=== PATIENT | female | born 1985 | race Hispanic/Latino ===

== ENCOUNTER 2018-06-24 09:41 | Outpatient (CLI) | payer MEDICAID ==
--- NOTE | 2018-06-24 13:40 | ULT ---
OBSTETRIC SONOGRAM: History: evaluation. 2nd trimester gestation. FINDINGS: Multiple transabdominal sonographic views of the gravid uterus show a single uterine gestation in rehana ech presentation. Grade 0 placenta is posterior. Amniotic fluid is within normal limits. No gross int racranial abnormalities are apparent. Four chamber heart shows motion at 143 beats/minute. Three vess el cord shows a normal insertion. Amniotic fluid is unremarkable. spine and kidneys are intact as visualized. Measurements are as follows: BPD 18 weeks 6 days HC 19 weeks 2 days AC 19 weeks 5 days FL 18 weeks 4 days Estimated date of delivery based on today's sonogram is 11-17-18. [place] percentile: 5%. IMPRESSION: Single viable intrauterine gestation with estimated gestational age based on today's sonogram of 19 w eeks 1 day, approximately 8 days smaller than the previously stated date, at last menstrual period. POS: [facility]
== END 2018-06-24 09:42 | disposition home or self-care (01) ==
LOC: BICULT 09:41
PROVIDERS: ATTEND Family Medicine
DX: O09.522 Supervision of elderly multigravida, second trimester (principal); Z3A.19 19 weeks gestation of pregnancy
CPT/HCPCS: 76805

== ENCOUNTER 2018-10-29 08:08 | Day surgery (SDC) | payer MEDICAID, OTHER ==
[2018-10-29 08:41] VITALS: BMI 43.2
[2018-10-29 08:46] VITALS: BP 118/71; TEMP 98
--- NOTE | 2018-10-29 09:16 | PDOC.LDHP ---
Labor and Delivery H&P Chief complaint: decreased movement HPI: Patient of Dr Jones Time: 909 Location: L&D [facility] HPI: 32 yo at 38 weeks 3 days here for decreased FM since 399. No VB, no LOF, no trauma, no CTX. No other issues. HX x2...here for check. Review of Systems: complete ROS completed and as per HPI Current gestational age (weeks): 38 (3) Dating criteria: last menstrual period Grav: 3 Para: 2 Current complications: none Abnormal US findings: No Current medications: pre-donna vitamins Previous surgical history: other (widom teeth) Allergies/Adverse Reactions: Allergies Allergy/AdvReac Type Severity Reaction Status Date / Time No Known Drug Allergies Allergy Verified 05/25/13 16:17 Social history: none - Physical Exam Vital signs reviewed and normal: yes (118/71...pulse was initially 80, then 105 after RN interview (following); afebrile) General: NAD Heart: RRR Lungs: CTAB Abdomen: gravid Extremeties: no edema FHT: category 1, variability present [place] contractions every: none - Assessment Decreased FM at early term..., strip Reactive (accels and mod variability, no decels) - Plan Plan: observation in L&D (Follow vitals, no evidence PTL, reassurrance given)
== END 2018-10-29 09:39 | disposition home health service (06) ==
LOC: L&D/OP 08:08
PROVIDERS: ATTEND Family Medicine
DX: O36.8130 Decreased fetal movements, third trimester, not applicable or unspecified (principal); Z3A.38 38 weeks gestation of pregnancy
CPT/HCPCS: 59025; 99282

== ENCOUNTER 2018-11-03 22:59 | Inpatient (IN) | payer MEDICAID, SELFPAY ==
[2018-11-03] MEDS ORDERED: Methylergonovine 0.2 MG/ML VIAL IM PRN (23:08)
[2018-11-03] MEDS ORDERED: Lidocaine 1% (PF) 30 ML VIAL SC PRN (23:08)
[2018-11-03] MEDS ORDERED: Diphenoxylate HCl/Atropine Tablet PO PRN (23:08)
[2018-11-03] MEDS ORDERED: Butorphanol Tartrate 1 MG/ML VIAL SLOW IVP PRN (23:08)
[2018-11-03] MEDS ORDERED: HYDROcodone/Acetaminophen 5/325 mg Tablet PO PRN (23:08)
[2018-11-03] MEDS ORDERED: Ibuprofen 800 MG TAB PO PRN (23:08)
[2018-11-03] MEDS ORDERED: Misoprostol 200 MCG TAB PR PRN (23:08)
[2018-11-03] MEDS ORDERED: Carboprost 250 MCG/ML AMP IM PRN (23:08)
[2018-11-03] MEDS ORDERED: Ondansetron PF 4 MG/2 ML Vial IVP PRN (23:08)
[2018-11-03] MEDS ORDERED: NS / Oxytocin 40 units/1000ml 1,000 ML IV PRN (23:08)
[2018-11-03] MEDS ORDERED: NS w/ Oxytocin 10 units 500 ML IV SCH ×2 (23:30)
[2018-11-03 23:36] LABS: Hemoglobin 12.7 g/dL (12.0-16.0); Mean Corpuscular HGB CONC 33.5 g/dL (32.0-36.0); Mean Corpuscular Hemoglobin 29.7 pg (27.0-31.0); Mean Corpuscular Volume 88.6 fL (78.0-98.0); Mean Platelet Volume 9.7 fL (7.4-10.4); Platelet Count 213 thou/uL (130-400); RBC Distribution Width 12.5 % (11.5-14.5); Red Blood Cell (RBC) Count 4.28 mill/uL (4.20-5.40); White Blood Cell (WBC) Count 11.9 thou/uL (4.8-10.8)
[2018-11-03] MEDS: Lactated Ringer's 1,000 ML IV SCH (23:59)
[2018-11-04] MEDS: Misoprostol 100 MCG TAB PO SCH ×3 (00:06→22:09)
[2018-11-04 00:13] LABS: Syphilis Antibody Nonreactive (Nonreactive); Syphilis Antibody Index 0.04 S/CO (<1.00 Non-Reactive)
[2018-11-04 00:48] VITALS: BMI 41.5
[2018-11-04 01:04] LABS: Hep B Surf Ag Non-Reactive S/CO (NonReactive)
[2018-11-04] MEDS: Lactated Ringer's 1,000 ML IV SCH (07:54)
[2018-11-04] MEDS ORDERED: Preparation H Ointment 28 GM TUBE PR PRN (17:03)
[2018-11-04] MEDS ORDERED: NS / Oxytocin 40 units/1000ml 1,000 ML IV SCH (17:03)
[2018-11-04] MEDS ORDERED: Milk Of Magnesia 30 ML UDCUP PO PRN (17:03)
[2018-11-04] MEDS ORDERED: HYDROcodone/Acetaminophen 5/325 mg Tablet PO PRN ×2 (17:03)
[2018-11-04] MEDS ORDERED: Lanolin Ointment 7 GM TUBE TOP PRN (17:03)
[2018-11-04] MEDS ORDERED: Bisacodyl 10 MG SUPP PR PRN (17:03)
[2018-11-04] MEDS ORDERED: Ondansetron PF 4 MG/2 ML Vial IVP PRN (17:03)
[2018-11-04] MEDS ORDERED: Adacel (T-DAP) 0.5 ML SYRINGE IM ONE (17:03)
[2018-11-04] MEDS: Ibuprofen 800 MG TAB PO SCH (22:14)
[2018-11-04] MEDS: Docusate Calcium (SURFAK) 240 MG CAP PO SCH (22:14)
[2018-11-04] MEDS: Ferrous Sulfate 325 MG TAB PO SCH (22:21)
[2018-11-05] MEDS: Lactated Ringer's 1,000 ML IV SCH (02:06)
[2018-11-05] MEDS: Ibuprofen 800 MG TAB PO SCH ×2 (05:55→13:48)
[2018-11-05 06:23] LABS: Hemoglobin 12.1 g/dL (12.0-16.0); Mean Corpuscular HGB CONC 33.4 g/dL (32.0-36.0); Mean Corpuscular Hemoglobin 30.3 pg (27.0-31.0); Mean Corpuscular Volume 90.6 fL (78.0-98.0); Mean Platelet Volume 9.3 fL (7.4-10.4); Platelet Count 182 thou/uL (130-400); RBC Distribution Width 12.5 % (11.5-14.5); Red Blood Cell (RBC) Count 3.99 mill/uL (4.20-5.40); White Blood Cell (WBC) Count 12.4 thou/uL (4.8-10.8)
[2018-11-05] MEDS ORDERED: Prenatal Vitamin 1 TAB PO SCH (09:00)
[2018-11-05] MEDS: Docusate Calcium (SURFAK) 240 MG CAP PO SCH (09:18)
[2018-11-05] MEDS: Ferrous Sulfate 325 MG TAB PO SCH ×2 (09:19→14:27)
[2018-11-05 12:12] VITALS: BP 129/68; TEMP 98.2
== END 2018-11-05 18:15 | disposition home or self-care (01) | DRG 807 ==
LOC: L&D 22:59 → 3SW 11-04 22:12
PROVIDERS: ADMIT Family Medicine; ATTEND Family Medicine
PROC: 10E0XZZ Delivery of Products of Conception, External Approach (ICD-10-PCS; principal; 2018-11-04)
PROC: 10907ZC Drainage of Amniotic Fluid, Therapeutic from Products of Conception, Via Natural or Artificial Opening (ICD-10-PCS; 2018-11-04)
PROC: 3E033VJ Introduction of Other Hormone into Peripheral Vein, Percutaneous Approach (ICD-10-PCS; 2018-11-04)
PROC: 3E0P7VZ Introduction of Hormone into Female Reproductive, Via Natural or Artificial Opening (ICD-10-PCS; 2018-11-04)
PROC: 0HQ9XZZ Repair Perineum Skin, External Approach (ICD-10-PCS; 2018-11-04)
DX: O99.214 Obesity complicating childbirth (principal); Z37.0 Single live birth; E66.9 Obesity, unspecified; O70.0 First degree perineal laceration during delivery; O69.81X0 Labor and delivery complicated by cord around neck, without compression, not applicable or unspecified; Z3A.39 39 weeks gestation of pregnancy
CPT/HCPCS: 36415; 85027; 86780; 86850; 86900; 86901; 87340; 90715; J0595; J2001

== ENCOUNTER 2022-04-21 12:36 | Emergency (ER) | payer MEDICAID, SELFPAY ==
[~2022-04-21 12:36] MED LIST: Iopamidol-370 76% 500 ML 1 ML ONE
[2022-04-21 13:04] LABS: BHCG - Serum Negative (NEGATIVE); Pregs Control Background? CLEAR/WHITE (CLR/WHITE); Pregs Control Bar Appear? YES (CONTROL BAR)
[2022-04-21 13:14] LABS: #Eosinphils 0.2 thou/uL (0.0-0.7); #Lymphocytes 2.8 thou/uL (1.20-3.40); #Monocytes 0.8 thou/uL (0.11-0.59); #Neutrophils 13.8 thou/uL (1.40-6.50); %Basophils 0.2 % (0.0-1.0); %Lymphocytes 15.9 % (21.0-51.0); %Monocytes 4.6 % (0.0-10.0); %Neutrophils 78.3 % (42.0-75.0); Hemoglobin 12.9 g/dL (12.0-16.0); Mean Corpuscular HGB CONC 32.3 g/dL (32.0-36.0); Mean Corpuscular Hemoglobin 26.7 pg (27.0-31.0); Mean Corpuscular Volume 82.8 fL (78.0-98.0); Mean Platelet Volume 8.5 fL (7.4-10.4); Platelet Count 316 thou/uL (130-400); RBC Distribution Width 13.5 % (11.5-14.5); Red Blood Cell (RBC) Count 4.84 mill/uL (4.20-5.40); White Blood Cell (WBC) Count 17.6 thou/uL (4.8-10.8)
[2022-04-21 13:20] LABS: ALT (SGPT) 26 U/L (8-55); AST (SGOT) 35 U/L (5-34); Albumin 4.1 g/dL (3.5-5.0); Alkaline Phosphatase 115 U/L (40-110); Anion Gap 15 mmol/L (10-20); BUN (Urea Nitrogen) 13 mg/dL (7.0-18.7); Bilirubin, Total 0.3 mg/dL (0.2-1.2); Calc. Creatinine Clearance 0 mL/min (70-130); Calcium 9.1 mg/dL (7.8-10.44); Carbon Dioxide 24 mmol/L (22-29); Chloride 102 mmol/L (98-107); Estimated GFR 100; Globulin 3.8 g/dL (2.4-3.5); Glucose 125 mg/dL (70-105); Lipase 18 U/L (8-78); Protein, Total 7.9 g/dL (6.0-8.3); Sodium 137 mmol/L (136-145)
[2022-04-21] MEDS ORDERED: Ondansetron ODT 8 MG TAB ONE (15:08)
[2022-04-21] MEDS ORDERED: Ketorolac Tromethamine 30 MG/ML VIAL ONE (15:08)
[2022-04-21 16:30] LABS: Bacteria/HPF None Seen HPF (None Seen); Bilirubin Negative (Negative); Blood, Urine 3+ (Negative); Clarity Turbid (Clear); Glucose, Urine (Dipstick) Normal (Negative); Ketone, Urine 60 mg/dL (Negative); Leukocyte 75 Leu/uL (Negative); Nitrite Negative (Negative); Protein, Urine (Dipstick) 30 mg/dL (Neg-Trace); RBC/HPF Greater than 50 HPF (0-3); Specific Gravity, Urine 1.024 (1.002-1.036); Urobilinogen Normal mg/dL (Less than 2); pH, Urine 6.5 (5.0-9.0)
[2022-04-21] MEDS ORDERED: Morphine 4 MG/ML VIAL ONE (17:39)
== END 2022-04-21 16:45 | disposition home or self-care (01) ==
LOC: ERS 12:36
DX: N13.2 Hydronephrosis with renal and ureteral calculous obstruction (principal)
CPT/HCPCS: 36415; 74177; 80053; 81003; 81015; 83690; 84703; 85025; 96374; 96375; J1885; J2270; Q0162; Q9967